=== PATIENT | female | born 1985 | race Caucasian/White ===

== ENCOUNTER 2020-04-23 14:37 | Emergency (ER) | payer SELFPAY ==
[2020-04-23] MEDS ORDERED: ASPIRIN TABLET 325 MG TAB PO ONE (14:54)
--- NOTE | 2020-04-23 15:01 | ED.PDOC ---
History of Present Illness - General Chief Complaint: Chest Pain/AL Stated Complaint: Upper CP, left leg pain (thigh to lower leg) and rectal bleeding (resolved) Time Seen by Provider: 04/23/20 14:45 Source: patient Exam Limitations: no limitations Additional Information: Pt says about 3 days ago she noticed some discomfort in her lower left leg. She describes it as a crampy pain. She also had a small amount of BRBPR that day, but it hasn't recurred. Pt says she has tightness in her upper chest, but no SOB, cough, ST, F/C. She admits to mild nausea, but no vomiting or diarrhea. She says her periods have been normal. She is not on OCP's and has never had a PE/DVT. Pt denies urinary symptoms. She says she is constantly under a high level of stress. - History of Present Illness Timing/Duration: other - 3 days Severity: mild Allergies/Adverse Reactions: Allergies Meperidine [From Demerol HCl] Allergy (Verified 12/02/15 06:15) Home Medications: Ambulatory Orders Clindamycin HCl 300 mg PO Q8H #30 cap 12/02/15 Tramadol HCl [Ultram] 50 mg PO TID #20 tab 04/23/20 Review of Systems - Review of Systems Constitutional: States: no symptoms reported. Denies: chills, fever EENTM: States: no symptoms reported Respiratory: Denies: cough, orthopnea, short of breath, wheezing Cardiology: States: chest pain. Denies: edema, palpitations, syncope Gastrointestinal/Abdominal: States: nausea. Denies: abdominal pain, constipation, diarrhea, vomiting Genitourinary: States: no symptoms reported Musculoskeletal: States: muscle pain Neurological: States: no symptoms reported Hematologic/Lymphatic: States: no symptoms reported Past Medical History (General) - Patient Medical History Hx Congestive Heart Failure: No Hx Diabetes: No Hx MRSA: No - Vaccination History Hx Influenza Vaccination: No Hx Pneumococcal Vaccination: No - Social History Hx Tobacco Use: Yes Hx Alcohol Use: Yes Hx Depression: Yes Family Medical History - Family History Mother Family History: Unknown Living Status: Unknown Physical Exam - Physical Exam General Appearance: Alert, No apparent distress Ears, Nose, Throat: hearing grossly normal Neck: non-tender, full range of motion Respiratory: lungs clear, normal breath sounds, no respiratory distress, no accessory muscle use, other - TTP of upper chest that reproduces pt's pain Cardiovascular/Chest: normal peripheral pulses, regular rate, rhythm, no edema, no gallop, no JVD, no murmur Gastrointestinal/Abdominal: normal bowel sounds, non tender, soft, no organomegaly, no pulsatile mass Neurologic: alert, normal mood/affect, oriented x 3 Skin Exam: normal color, warm/dry Progress - Progress Progress: 04/23/20 16:00 Laboratory Results WBC 6.6 K/mm3 (4.8-10.8) 04/23/20 15:08 RBC 4.09 M/mm3 (4.20-5.40) L 04/23/20 15:08 Hgb 12.9 gm/dL (12.0-16.0) 04/23/20 15:08 Hct 36.4 % (36.0-47.0) 04/23/20 15:08 MCV 89.0 fl (81.0-99.0) 04/23/20 15:08 MCH 31.5 pg (27.0-31.0) H 04/23/20 15:08 MCHC 35.4 g/dL (33.0-37.0) 04/23/20 15:08 RDW 12.8 % (11.5-14.5) 04/23/20 15:08 Plt Count 287 K/mm3 (130-400) 04/23/20 15:08 MPV 7.5 fl (7.40-10.4) 04/23/20 15:08 Absolute Neuts (auto) 4.30 K/uL (1.8-6.8) 04/23/20 15:08 Absolute Lymphs (auto) 1.70 K/uL (1.0-3.4) 04/23/20 15:08 Absolute Monos (auto) 0.50 K/uL (0.2-0.8) 04/23/20 15:08 Absolute Eos (auto) 0.10 K/uL (0.0-0.4) 04/23/20 15:08 Absolute Basos (auto) 0.00 K/uL (0.0-0.1) 04/23/20 15:08 Neutrophils % 65.0 % (42.0-78.0) 04/23/20 15:08 Lymphocytes % 25.4 % (20.0-50.0) 04/23/20 15:08 Monocytes % 7.2 % (2.0-9.0) 04/23/20 15:08 Eosinophils % 1.7 % (1.0-5.0) 04/23/20 15:08 Basophils % 0.7 % (0.0-2.0) 04/23/20 15:08 D-Dimer, Quantitative < 131.0 ng/ml (131-400) L 04/23/20 15:05 Sodium 139 mmol/L (135-145) 04/23/20 15:08 Potassium 3.1 mmol/L (3.6-5.0) L 04/23/20 15:08 Chloride 102 mmol/L (101-111) 04/23/20 15:08 Carbon Dioxide 25 mmol/L (21-31) 04/23/20 15:08 Anion Gap 15.1 (12-18) 04/23/20 15:08 BUN 8 mg/dL (7-18) 04/23/20 15:08 Creatinine 0.62 mg/dL (0.6-1.3) 04/23/20 15:08 BUN/Creatinine Ratio 12.9 (10-20) 04/23/20 15:08 Random Glucose 99 mg/dL (70-105) 04/23/20 15:08 Serum Osmolality 275.9 mOsm/L (275-295) 04/23/20 15:08 Calcium 8.7 mg/dL (8.4-10.2) 04/23/20 15:08 Total Bilirubin 1.0 mg/dL (0.2-1.0) 04/23/20 15:08 AST 19 IU/L (10-42) 04/23/20 15:08 ALT 17 IU/L (10-60) 04/23/20 15:08 Alkaline Phosphatase 48 IU/L (42-121) 04/23/20 15:08 Troponin I < 0.02 ng/mL (0.01-0.05) 04/23/20 15:08 Serum Total Protein 7.0 gm/dL (6.4-8.2) 04/23/20 15:08 Albumin 4.4 g/dl (3.2-5.5) 10/13/20 15:08 Globulin 2.6 gm/dL (2.3-3.5) 04/23/20 15:08 Albumin/Globulin Ratio 1.7 (1.1-1.9) 04/23/20 15:08 Serum HCG, Qual Negative (NEGATIVE) 04/23/20 15:08 EXAM DESCRIPTION: Chest,1 View CLINICAL HISTORY: Chest pain COMPARISON: None Available. TECHNIQUE: One view radiograph of the chest FINDINGS: Cardiac silhouette shows normal heart size. Pulmonary vascularity is within normal limits. Lungs show no confluent infiltrates. No pleural effusion. No pneumothorax. No acute osseous abnormality. Surgical clips right upper abdominal quadrant. IMPRESSION: No acute cardiopulmonary process. Electronically signed by: Jak Quiles MD 04/23/2020 3:08 PM CDT Pt with no risk factors for heart disease and considered low risk for PE. Pt clearly has chest wall pain, which suggests a superficial inflammatory process (e.g. costochondritis). Pt has nl d-dimer, so no need for further imaging, and suggests left leg pain is neuropathic or musculoskeletal pain. Pt's vitals nonacute at this time. Pt has no concerns about being d/c home. - EKG/XRAY/CT EKG: Sinus - 88, nonspecific ST T wave Chg Comments: Nl intervals, nl axis, no Q waves, no ST elevations Departure - Departure Clinical Impression: Chest wall pain, Blood in stool, Leg pain, left Time of Disposition: 16:02 Disposition: Discharge to Home or Self Care Condition: Excellent Departure Forms: ED Discharge - Pt. Copy, Patient Portal Self Enrollment Instructions: DI for Chest Pain, Costochondritis, Lower Extremity Muscle Strain Diet: resume usual diet Activity: increase activity as tolerated Referrals: KATIE TOUSSAINT [Primary Care Provider] - 1-2 Weeks Prescriptions: Tramadol HCl [Ultram] 50 mg PO TID #20 tab Home Medications: Ambulatory Orders Clindamycin HCl 300 mg PO Q8H #30 cap 12/02/15 Tramadol HCl [Ultram] 50 mg PO TID #20 tab 04/23/20
--- NOTE | 2020-04-23 15:09 | RAD ---
EXAM DESCRIPTION: Chest,1 View CLINICAL HISTORY: Chest pain COMPARISON: None Available. TECHNIQUE: One view radiograph of the chest FINDINGS: Cardiac silhouette shows normal heart size. Pulmonary vascularity is within normal limits. Lungs show no confluent infiltrates. No pleural effusion. No pneumothorax. No acute osseous abnormality. Surgical clips right upper abdominal quadrant. IMPRESSION: No acute cardiopulmonary process. Electronically signed by: Jak Quiles MD 04/23/2020 3:08 PM CDT
[2020-04-23 16:19] VITALS: BP 131/88; TEMP 98.8; O2SAT 100
== END 2020-04-23 16:19 | disposition home or self-care (01) ==
LOC: ER 14:37
DX: M79.662 Pain in left lower leg (principal); R07.89 Other chest pain; K92.1 Melena; R11.0 Nausea; F32.9 Major depressive disorder, single episode, unspecified; Z87.891 Personal history of nicotine dependence; Z88.8 Allergy status to other drugs, medicaments and biological substances